=== PATIENT | female | born 1975 | race African-American/Black ===

== ENCOUNTER 2024-04-02 20:53 | Emergency (ER) | payer BC, OTHER ==
[2024-04-02 21:15] VITALS: BP 157/96; PULSE 89; RESP 16; TEMP 97.8; BMI 32.5
[2024-04-03 01:52] LABS: BASO % 1.4 % (0-2.0); HEMOGLOBIN 12.5 GM/dL (10.7-15.3); MCH 27.7 pg (25.7-33.7); MCHC 33.7 g/dl (32.0-36.0); MEAN CELL VOLUME 82.2 fl (80-96); MEAN PLT VOLUME 9.2 fl (7.5-11.1); MONO % 11.1 % (3.8-10.2); NEUT % 53.5 % (42.8-82.8); PLATELET COUNT 323 10^3/uL (134-434); RDW 14.4 % (11.6-15.6); WHITE BLOOD COUNT 5.5 K/mm3 (4.0-10.0)
[2024-04-03 02:17] LABS: POTASSIUM 3.6 mmol/L (3.5-5.1)
[2024-04-03 02:18] LABS: CALCIUM 9.2 mg/dL (8.5-10.1)
[2024-04-03 02:19] LABS: ALBUMIN 3.8 g/dl (3.4-5.0); BLOOD UREA NITROGEN 11.8 mg/dL (7-18)
[2024-04-03 02:23] LABS: TOT PROT 7.5 g/dl (6.4-8.2)
[2024-04-03 02:24] LABS: BILIRUBIN,TOTAL 0.3 mg/dL (0.2-1)
== END 2024-04-03 02:24 | disposition home or self-care (01) ==
LOC: FER 20:53
DX: I10 Essential (primary) hypertension (principal)
CPT/HCPCS: 36415; 71046-TC-FY; 80053; 84484; 85025; 93005; 99285-25